=== PATIENT | female | born 1995 | race Two or more races ===

== ENCOUNTER 2025-02-01 22:06 | Emergency (ER) | payer MEDICAID, SELFPAY ==
--- NOTE | 2025-02-01 | ECG_ITS ---
Test Reason : CP Blood Pressure : */* mmHG Vent. Rate : 98 BPM Atrial Rate : 98 BPM P-R Int : 128 ms QRS Dur : 84 ms QT Int : 344 ms P-R-T Axes : 86 -78 59 degrees QTcB Int : 439 ms Normal sinus rhythm Biatrial enlargement Indeterminate axis Abnormal ECG No previous ECGs available Referred By: Generic ED Physician Electronically Signed By: BO GRIFFIN
--- NOTE | ~2025-02-01 | XR_ITS ---
CLINICAL HISTORY: asthma 1 view chest x-ray Comparison: None provided Findings: Normal-sized heart. Hyperinflated lungs consistent with given history of asthma. No focal consolidation, pleural effusion, or pneumothorax. Scoliosis of the midthoracic spine. Osseous structures otherwise unremarkable. IMPRESSION: Hyperinflated lungs consistent with given history of asthma. Otherwise unremarkable. This document has been electronically signed by: Vikas Lopes MD on 02/02/2025 00:17:16
[2025-02-01 22:22] VITALS: BP 145/76; PULSE 80; RESP 16; TEMP 35.6; O2SAT 91; BMI 31.9
[2025-02-01 22:28] LABS: MANUAL DIFF FLAG NO
[2025-02-01 22:34] LABS: Hematocrit 47.6 % (37.0-47.0); Hemoglobin 17.2 g/dl (12.0-16.0); Imm Gran Abs Auto 0.03 X10*3/uL (0.00-0.03); Imm Gran Pct Auto 0.4 % (0.0-0.4); Lymphocytes Absolute Auto 1.6 X10*3/uL (1.2-4.9); Mean Corpuscular HGB Conc 36.1 g/dl (31.0-35.0); Mean Corpuscular Hemoglobin 34.7 pg (27.0-33.0); Mean Corpuscular Volume 96.0 fL (80.0-98.0); NRBC Abs Auto 0.000 X10*3/uL (0.0-0.012); NRBC Pct Auto 0.0 /100WBC (0.0-0.2); Platelet Count 268 X10*3/uL (160-400); Red Blood Count 4.96 X10*6/uL (4.20-5.50); White Blood Count 8.0 X10*3/uL (4.8-10.8)
[2025-02-01 22:45] LABS: Alanine Aminotransferase 15 U/L (0-31); Albumin Level 4.9 g/dL (3.5-5.0); Alkaline Phosphatase 101 U/L (39-117); Anion Gap 16 (12-20); Aspartate Amino Transferase 20 U/L (5-31); Blood Urea Nitrogen 9 mg/dL (9-16); Calcium 9.6 mg/dL (8.4-10.2); Carbon Dioxide 25 mmol/L (22-29); Chloride 106 mmol/L (96-108); Creatinine Clr Calc Pharmacy 135.0; Estimated Glomerular Filt Rate > 60; Potassium 4.0 mmol/L (3.3-5.1); Sodium 143 mmol/L (135-145); Total Protein 8.2 g/dL (6.5-8.0)
[2025-02-01 22:53] LABS: Troponin-I High Sensitivity < 2.7 ng/L (<3.5-17.0)
[2025-02-02 02:00] VITALS: RESP 22; O2SAT 98
--- NOTE | 2025-02-02 02:40 | PC.NURSE ---
PT reports increased wheezing and SOB that started today, after a day of smoking marijuana and cigarettes and in a large quality than usual. PT vss, 98% on RA- wheezing noted in bilateral lungs. RT called to bedside for treatment
[2025-02-02 02:51] VITALS: PULSE 80; RESP 20; O2SAT 96
[2025-02-02] MEDS: Albuterol Sulfate 7.5 MG, Albuterol/Iprat 2.5/0.5MG 3 ML 3 ML INHALE (02:51)
--- NOTE | 2025-02-02 03:20 | PC.NURSE ---
treatment completed. PT reports she feels much better
--- NOTE | 2025-02-02 03:22 | ED_ITS ---
HPI - URI/Sore Throat General Chief Complaint: Upper Respiratory Symptoms Stated Complaint: chest pain, difficulty breathing Time Seen by Provider: 02/02/25 03:22 Source: patient Mode of arrival: ambulatory Limitations: no limitations History of Present Illness ED Provider: Dr. Mica Stevenson HPI Narrative: 29-year-old female with a history of asthma and tobacco use presenting with shortness of breath and chest discomfort ongoing for the last couple of days. States that she has been having worsening asthma since she was smoking a lot of tobacco last week. Denies associated fever. Admits to a dry cough but no sputum production. No known sick contacts or travel. Describes chest tightness that is associated with her cough. Otherwise denies nausea, vomiting, diarrhea, lower extremity edema or pain. Has been using her inhaler and feels that she might be starting to run out. Has been trying to quit smoking but feels it is challenging. Last use of steroids was about a month ago. No recent antibiotic use. Related Data Previous Rx's ?Medication ?Instructions ?Recorded albuterol sulfate 90 mcg/actuation 2 inh inhalation Q4 H PRN shortness 02/02/25 breath activated powder inhaler of breath #1 ea prednisone 50 mg tablet 50 mg PO DAILY 5 days #5 tab s 02/02/25 Allergies Allergy/AdvReac Type Severity Reaction Status Date / Time amoxicillin AdvReac Hives Verified 02/01/25 22:25 naproxen AdvReac Hives Verified 02/01/25 22:25 Review of Systems 2 Review of Systems: As per HPI, full review of systems performed and negative but for the above mentioned pertinent positives and negatives. [facility] Social History Social History Alcohol intake: current Smoked in Last 30 Days: Yes Use of substances other than those prescribed or required for medical reasons: Yes Substance Use Type: Marijuana Advance Directives: No Advance Directives Information Provided: Yes Do you have a plan to hurt others: No Plan Physical Exam 2 Exam: Exam: GENERAL: Ill-appearing, moderate respiratory distress. SKIN: Normal skin color for ethnicity, warm, dry, no rashes noted. HEENT: Normocephalic, atraumatic, no stridor, EOMI. NECK: Soft, supple, full ROM, midline structures nontender, no step-offs, no deformities, no lymphadenopathy. CHEST: Heart regular tachycardia, symmetric chest rise and fall. PULMONARY: Diffuse wheezes throughout, tachypnea, poor air movement bilaterally, moderate respiratory distress. ABDOMINAL: Soft, nontender, quiet bowel sounds in all quadrants. : Deferred. MUSCULOSKELETAL: Normal tone, full range of motion, no deformities, no peripheral edema. NEURO: Alert and oriented to person, CN II through XII intact, no focal neurologic deficits. PSYCHIATRIC: Anxious affect, appropriate demeanor. Vital Signs: Vital Signs: Last Vital Signs Temp 0 F L 02/02/25 03:57 Pulse 80 02/02/25 03:57 Resp 20 02/02/25 03:57 BP 145/76 H 02/02/25 03:57 Pulse Ox 98 02/02/25 03:57 O2 Del Method Room Air 02/02/25 03:57 BMI result Body Mass Index 31.9 Medications Administered Discontinued Medications Generic Name Dose Route Start Last Admin Trade Name Freq PRN Reason Stop Dose Admin Albuterol Sulfate 7.5 mg/ 0 mg 02/02/25 02:46 02/02/25 02:51 Albuterol/Ipratropium 3 ml INHALE 02/02/25 02:47 10 each ONCE ONE Administration Prednisone 50 mg 02/02/25 03:39 02/02/25 03:55 Prednisone 10 Mg Tablet PO 02/02/25 03:40 50 mg ONCE ONE Administration Medical Decision Making Medical Decision Making [facility] Narrative: Patient presents today with chief complaint of shortness of breath. Differential diagnosis includes, but is not limited to, upper respiratory infection, pneumonia, asthma exacerbation, CHF, pneumothorax, pleural effusion, pulmonary embolism, ACS. Broad-based work-up will be initiated to evaluate for etiology of patient's symptoms. Patient is significantly improved after DuoNeb treatment. Reports her work of breathing is normal and she feels stable for discharge. Provided with a prescription for albuterol as well as prednisone for 5 days. Using shared decision making, plan for discharge home to follow-up with primary care and/or specialist. Patient understands and agrees with plan for discharge. Discharged home in stable condition. Differential Diagnosis Differential Diagnoses: The differential diagnosis associated with the presentation includes (As above) Admission/Observation Consideration of admission/observation: Escalation of care including admission/observation considered Lab Data [facility] Lab Attestation statement: I reviewed the patient's lab results. 02/01/25 22:23 02/01/25 22:23 Labs: Lab Results 02/01/25 Range/Units 22:23 WBC 8.0 (4.8-10.8) X10*3/uL RBC 4.96 (4.20-5.50) X10*6/uL Hgb 17.2 H (12.0-16.0) g/dl Hct 47.6 H (37.0-47.0) % MCV 96.0 (80.0-98.0) fL MCH 34.7 H (27.0-33.0) pg MCHC 36.1 H (31.0-35.0) g/dl RDW 14.8 (11.0-16.0) % Plt Count 268 (160-400) X10*3/uL MPV 9.2 L (9.4-12.3) fL Immature Gran % (Auto) 0.4 (0.0-0.4) % Neut % (Auto) 64.3 (45-73) % Lymph % (Auto) 19.7 L (20-40) % [place] % (Auto) 9.6 (2-11) % Eos % (Auto) 5.1 H (0-4) % Baso % (Auto) 0.9 (0-2) % Lymph # (Auto) 1.6 (1.2-4.9) X10*3/uL [place] # (Auto) 0.8 (0.1-1.2) X10*3/uL Eos # (Auto) 0.4 (0.0-0.4) X10*3/uL Baso # (Auto) 0.1 (0.0-0.2) X10*3/uL Abs Immat Gran (auto) 0.03 (0.00-0.03) X10*3/uL Absolute Neuts (auto) 5.2 (2.0-8.3) x10*3/uL Absolute Nucleated RBC 0.000 (0.0-0.012) X10*3/uL Nucleated RBC % (auto) 0.0 (0.0-0.2) /100WBC Sodium 143 (135-145) mmol/L Potassium 4.0 (3.3-5.1) mmol/L Chloride 106 (96-108) mmol/L Carbon Dioxide 25 (22-29) mmol/L Anion Gap 16 (12-20) BUN 9 (9-16) mg/dL Creatinine 0.67 (0.5-1.4) mg/dL Estim Creat Clear Calc 135.0 Estimated GFR > 60 Random Glucose 105 (60-115) mg/dL Calcium 9.6 (8.4-10.2) mg/dL Total Bilirubin 0.8 (0.0-1.0) mg/dL AST 20 (5-31) U/L ALT 15 (0-31) U/L Alkaline Phosphatase 101 (39-117) U/L Troponin I High Sens < 2.7 (<3.5-17.0) ng/L Total Protein 8.2 H (6.5-8.0) g/dL Albumin 4.9 (3.5-5.0) g/dL Independent Interpretation I performed an independent interpretation of an: EKG Interpretation: My independent interpretation of the ECG reveals normal sinus rhythm with rate of 98, left axis deviation, right bundle-branch block, no ST elevations or depressions to suggest ischemic changes, no previous for comparison. My independent interpretation of the chest x-ray reveals no consolidations, pulmonary edema, pleural effusion, pneumothorax, obvious bony abnormalities. Radiology Impression Discussion of test interpretation with radiology: I have reviewed the radiologist's reading. Prescription Management I considered prescription management with: Other (Albuterol inhaler, steroids) Chronic Conditions Patient?s care impacted by: Other (Asthma) Discharge Plan Discharge Clinical Impression: Asthma without acute exacerbation, Tobacco use, Hemochromatosis Patient Disposition: Home, Self-Care Instructions: How to Stop Smoking (ED) Additional Instructions: You really need to quit smoking. Take your prednisone for the next 5 days. Return to the ER with any new or worsening symptoms. Follow up with your primary care to discuss your inhalers. Prescriptions: New prednisone 50 mg tablet 50 mg PO DAILY 5 Days Qty: 5 0RF albuterol sulfate 90 mcg/actuation aerosol powdr breath activated 2 inh inhalation Q4H PRN (Reason: shortness of breath) Qty: 1 0RF Interventions: ED Discharge Assessment Last Done: 02/02/25 03:57 Discharge Date/Time: 02/02/25 03:58 Print Language: Romansh
[2025-02-02 03:57] VITALS: BP 145/76; PULSE 80; RESP 20; TEMP -17.7; TEMP 0; O2SAT 98
== END 2025-02-02 03:58 | disposition home or self-care (01) ==
PROVIDERS: Emergency Provider Emergency Medicine; PCP Internal Medicine
DX: J45.909 Unspecified asthma, uncomplicated (principal); E83.119 Hemochromatosis, unspecified; R07.9 Chest pain, unspecified; R06.02 Shortness of breath; Z72.0 Tobacco use
CPT/HCPCS: 36415; 71045; 80053; 84484; 85025; 93005; 94640; 99284; 99285

== ENCOUNTER → 2025-02-01 22:18 | Outpatient (BNV) | payer MEDICAID, SELFPAY | PROVIDERS: Emergency Provider Emergency Medicine; PCP Internal Medicine; Visit Provider Internal Medicine | DX: I51.7 Cardiomegaly (principal) | CPT/HCPCS: 93010 ==

== ENCOUNTER → 2025-02-01 22:30 | Outpatient (BNV) | payer MEDICAID, SELFPAY | PROVIDERS: PCP Internal Medicine; Visit Provider Student in an Organized Health Care Education/Training Program | DX: J45.909 Unspecified asthma, uncomplicated (principal) | CPT/HCPCS: 71045 ==

== ENCOUNTER 2025-03-24 18:42 | Emergency (ER) | payer OTHER, MEDICAID, SELFPAY ==
--- NOTE | ~2025-03-24 | XR_ITS ---
CLINICAL HISTORY: leg pain 2 view left tibia-fibula and 2 views of the left knee Comparison: None provided Findings No fractures or dislocations. No joint effusion. No significant arthritic change. No radiopaque foreign body. IMPRESSION: No acute osseous abnormality. This document has been electronically signed by: Joanna Ramirez MD on 03/24/2025 20:44:56
--- NOTE | ~2025-03-24 | XR_ITS ---
CLINICAL HISTORY: back pain 3 views lumbar spine Comparison: None provided Findings: Straightening of the normal lumbar lordosis. No acute fractures or dislocation. No significant degenerative change. IUD projects over the pelvis. IMPRESSION: No acute findings. This document has been electronically signed by: Joanna Ramirez MD on 03/24/2025 20:42:58
--- NOTE | ~2025-03-24 | XR_ITS ---
CLINICAL HISTORY: leg pain 2 view right knee and 3 view of the right tibia and fibula. Comparison: None provided Findings: No acute fractures or dislocations. Chronic mid right fibular fracture. No significant loss of joint space, osteophytes, or erosions. No joint effusion. No radiopaque foreign body. IMPRESSION: No acute osseous abnormality. This document has been electronically signed by: Joanna Ramirez MD on 03/24/2025 20:55:04
[2025-03-24 19:07] VITALS: BP 132/73; PULSE 84; RESP 20; TEMP 36.1; O2SAT 99; BMI 25.7
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
[2025-03-24] MEDS: oxyCODONE HCl Immed Release 5 MG TABLET PO (23:02)
[2025-03-24 23:09] VITALS: BP 132/73; PULSE 84; RESP 20; TEMP 36.1; O2SAT 99
== END 2025-03-24 23:09 | disposition home or self-care (01) ==
PROVIDERS: Emergency Provider Emergency Medicine; PCP Internal Medicine
DX: S39.012A Strain of muscle, fascia and tendon of lower back, initial encounter (principal); V43.12XA Car passenger injured in collision with other type car in nontraffic accident, initial encounter; Y93.89 Activity, other specified; Y92.414 Local residential or business street as the place of occurrence of the external cause; Y99.8 Other external cause status; M25.562 Pain in left knee; M25.561 Pain in right knee
CPT/HCPCS: 72100; 73590; 99283

== ENCOUNTER → 2025-03-24 19:13 | Outpatient (BNV) | payer MEDICAID, SELFPAY | PROVIDERS: PCP Internal Medicine; Visit Provider Student in an Organized Health Care Education/Training Program | DX: M54.50 Low back pain, unspecified (principal); M79.605 Pain in left leg; M79.604 Pain in right leg | CPT/HCPCS: 72100; 73590 ==